=== PATIENT | male | born 1995 | race Caucasian/White ===

== ENCOUNTER 2024-10-21 10:19 | Emergency (ER) | payer OTHER, SELFPAY ==
[2024-10-21 10:21] VITALS: BP 155/86; PULSE 83; RESP 13; TEMP 36.7; O2SAT 99; BMI 24.3
[2024-10-21 10:27] VITALS: BP 155/86; PULSE 89; O2SAT 99
[2024-10-21 10:30] VITALS: BP 157/92; PULSE 86; TEMP 36.7; O2SAT 98
--- NOTE | 2024-10-21 10:31 | DI.RAD.S_ITS ---
PROCEDURE: XR CHEST 1V INDICATIONS: Chest Pain TECHNIQUE: One view of the chest was acquired. COMPARISON: None. FINDINGS: Surgical changes and devices: None. Lungs and pleura: Lungs are clear. No pleural effusions or pneumothorax. Mediastinum: Mediastinal contours appear normal. Heart size is normal. Bones and chest wall: No suspicious bony lesions. Overlying soft tissues appear unremarkable. IMPRESSION: No acute cardiopulmonary abnormality is seen. Dictated by: Sam Baker M.D. on 10/21/2024 at 10:52 Approved by: Sam Baker M.D. on 10/21/2024 at 10:52
--- NOTE | 2024-10-21 10:31 | EKG_ITS ---
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
[2024-10-21] MEDS: ASPIRIN 81 MG CHEW TAB 324 MG PO (10:35)
[2024-10-21 10:44] LABS: Add Manual Diff / Slide Review NO; Basophils Absolute Auto 100 /uL (0-100); Basophils Percent Auto 0.8 % (0-2); Eosinophils Absolute Auto 200 /uL (0-450); Eosinophils Percent Auto 2.8 % (2-4); Hematocrit 46.4 % (41-53); Lymphocytes Absolute Auto 2300 /uL (1100-4500); Lymphocytes Percent Auto 27.7 % (25-40); Mean Corpuscular HGB Conc 34.6 % (30-36); Mean Corpuscular Hemoglobin 30.1 PG (26-34); Mean Corpuscular Volume 87.2 fL (80-100); Monocytes Absolute Auto 900 /uL (0-900); Monocytes Percent Auto 10.3 % (3-14); Neutrophils Absolute Auto 4800 /uL (1500-7000); Neutrophils Percent Auto 58.4 % (50-75); Platelet Count 227 X10^3/uL (150-400); Red Blood Cell Count 5.32 X10^6/uL (4.5-5.9); Red Cell Distribution Width 13.6 % (11.6-14.8); White Blood Cell Count 8.2 X10^3/uL (4.5-11.0)
[2024-10-21 10:52] LABS: INR 0.9 (0.9-1.3); Prothrombin Time 10.6 SECONDS (9.4-12.5)
[2024-10-21 10:54] LABS: PTT Partial Thromboplastin Tim 34 SECONDS (25.1-36.5)
[2024-10-21 10:56] LABS: Alanine Aminotransferase 24 IU/L (<50); Albumin 4.4 g/dL (3.5-5.0); Albumin Globulin Ratio 1.6 (1.0-2.8); Alkaline Phosphatase 47 U/L (38-126); Aspartate Aminotransferase 26 IU/L (17-59); BUN Creatinine Ratio 19.7 (6-22); Bilirubin Total 0.5 mg/dL (0.2-1.3); Blood Urea Nitrogen 14 mg/dL (9-20); Calcium 9.6 mg/dL (8.4-10.2); Carbon Dioxide 26 mmol/L (22-32); Chloride 106 mmol/L (98-107); Creatine Kinase 48 U/L (55-170); Estimated Glomerular Filt Rate > 60 mL/min (>60); Globulin 2.8 g/dL (1.7-4.1); Glucose 82 mg/dL (70-99); HEMOLYSIS < 15 (0-50); Lactate (Lactic Acid) 1.4 mmol/L (0.7-2.1); Lipase 127 U/L (23-300); Magnesium 1.8 mg/dL (1.6-2.3); Potassium 4.2 mmol/L (3.4-5.1); Sodium 139 mmol/L (137-145); Total Protein 7.2 g/dL (6.3-8.2)
[2024-10-21 11:00] VITALS: BP 146/74; PULSE 74; RESP 17; O2SAT 98
[2024-10-21 11:07] LABS: NT-proBNP (BNP-Adult 18+) 79 pg/mL (<125); Troponin I < 0.012 ng/mL (0.01-0.034)
--- NOTE | 2024-10-21 11:20 | ED_ITS ---
HPI - Chest Pain General Chief Complaint: Chest Pain Stated Complaint: Chest pain 3 days Time Seen by Provider: 10/21/24 11:12 Source: patient Mode of arrival: Ambulatory Limitations: no limitations History of Present Illness HPI narrative: Patient here for reproducible left anterior chest pain for the past 3 days. No known injury. 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 Pain is reproducible with deep breath and movement and coughing. No recent illness cough cold congestion fever chills. No primary family history of coronary disease. No history of hypertension hyperlipidemia. Patient does smoke. No exertional chest pain shortness of breath or diaphoresis or nausea. No prior history of pulmonary embolism or aortic dissection Related Data Allergies Allergy/AdvReac Type Severity Reaction Status Date / Time No Known Drug Allergies Allergy Verified 10/21/24 10:32 Review of Systems Review of Systems Narrative: GENERAL: Negative chills, fatigue, malaise, fever, sweats. HEENT: Negative sinus pain, ear pain, sore throat RESPIRATORY: Negative dyspnea, cough CARDIOVASCULAR: Positive chest pain, negative palpitations GASTROINTESTINAL: Negative vomiting, nausea, abdominal pain : Negative dysuria, frequency, hematuria MUSCULOSKELETAL: Negative muscle or bony pain SKIN: Negative rash, skin lesions NEUROLOGIC: Negative weakness, numbness ROS Unobtainable: All systems reviewed & are unremarkable except as noted in HPI and below Patient History Social History Smoking Status: Current every day smoker Smoking Status: Current every day smoker Exam Narrative Exam Narrative: GENERAL: in no distress, not toxic not dyspneic HEAD: Normocephalic. EYES: Pupils equal round ENT: Mucous membranes moist. NECK: Trachea midline. CARDIOVASCULAR: Regular rate and rhythm RESPIRATORY: Clear to auscultation. Breath sounds equal bilaterally. No wheezes, rales, or rhonchi. Chest is nontender at rib space around 3, 4, 5. No crepitus. Worse with deep breath and coughing as well. GASTROINTESTINAL: Abdomen soft, non-tender EXTREMITIES: No gross deformities. BACK: No flank tenderness. NEURO: AOx4. Clear speech SKIN: Warm and dry PSYCH: Not anxious, is cooperative Initial Vital Signs Initial Vital Signs: Vital Signs Temperature 98.1 F 10/21/24 10:21 Pulse Rate 83 10/21/24 10:21 Respiratory Rate 13 10/21/24 10:21 Blood Pressure 155/86 H 10/21/24 10:21 Pulse Oximetry 99 10/21/24 10:21 Oxygen Delivery Method Room Air 10/21/24 10:21 Scores HEART Score Heart Score history: Slightly Suspicious Heart Score EKG: Normal Heart Score Age: < 45 years old Heart Score risk factors: 1-2 risk factors Heart Score troponin: < or = to normal limit Heart Score Total: 1 Course Orders Ordered: Discontinued Medications Aspirin (Aspirin 81 Mg Chew Tab) 324 mg PO NOW ONE Stop: 10/21/24 10:30 Last Admin: 10/21/24 10:35 Dose: 324 mg Documented By: YI Ketorolac Tromethamine (Ketorolac 30 Mg/Ml Vial) 15 mg IV NOW ONE Stop: 10/21/24 11:16 Last Admin: 10/21/24 11:56 Dose: 15 mg Documented By: TYESHA Vital Signs Vital signs: Vital Signs - 8 hr 10/21/24 10:21 10/21/24 10:27 10/21/24 10:27 Temperature 98.1 F Pulse Rate 83 89 Respiratory Rate 13 Blood Pressure 155/86 H 155/86 H Pulse Oximetry 99 99 Oxygen Delivery Method Room Air 10/21/24 10:30 10/21/24 10:30 Temperature 98.1 F Pulse Rate 86 Respiratory Rate Blood Pressure 157/92 H Pulse Oximetry 98 Oxygen Delivery Method Room Air MDM - Chest Pain Lab Data 10/21/24 10:30 10/21/24 10:30 Labs: Lab Results 10/21/24 Range/Units 10:30 WBC 8.2 (4.5-11.0) X10^3/uL RBC 5.32 (4.5-5.9) X10^6/uL Hgb 16.0 (13.5-17.5) g/dL Hct 46.4 (41-53) % MCV 87.2 (80-100) fL MCH 30.1 (26-34) PG MCHC 34.6 (30-36) % RDW 13.6 (11.6-14.8) % Plt Count 227 (150-400) X10^3/uL Neut % (Auto) 58.4 (50-75) % Lymph % (Auto) 27.7 (25-40) % [place] % (Auto) 10.3 (3-14) % Eos % (Auto) 2.8 (2-4) % Baso % (Auto) 0.8 (0-2) % Neut # (Auto) 4800 (7739-1902) /uL Lymph # (Auto) 2300 (2992-5788) /uL [place] # (Auto) 900 (0-900) /uL Eos # (Auto) 200 (0-450) /uL Baso # (Auto) 100 (0-100) /uL PT 10.6 (9.4-12.5) SECONDS INR 0.9 (0.9-1.3) APTT 34 (25.1-36.5) SECONDS D-Dimer 269 (<500) ng/ml Sodium 139 (137-145) mmol/L Potassium 4.2 (3.4-5.1) mmol/L Chloride 106 (98-107) mmol/L Carbon Dioxide 26 (22-32) mmol/L BUN 14 (9-20) mg/dL Creatinine 0.71 (0.66-1.25) mg/dL Estimated GFR > 60 (>60) mL/min BUN/Creatinine Ratio 19.7 (6-22) Glucose 82 (70-99) mg/dL Lactate 1.4 (0.7-2.1) mmol/L Calcium 9.6 (8.4-10.2) mg/dL Magnesium 1.8 (1.6-2.3) mg/dL Total Bilirubin 0.5 (0.2-1.3) mg/dL AST 26 (17-59) IU/L ALT 24 (<50) IU/L Alkaline Phosphatase 47 (38-126) U/L Total Creatine Kinase 48 L (55-170) U/L Troponin I < 0.012 (0.01-0.034) ng/mL NT-Pro-B Natriuret Pep 79 (<125) pg/mL Total Protein 7.2 (6.3-8.2) g/dL Albumin 4.4 (3.5-5.0) g/dL Globulin 2.8 (1.7-4.1) g/dL Albumin/Globulin Ratio 1.6 (1.0-2.8) Lipase 127 (23-300) U/L Imaging Data Chest x-ray: Radiologist's Impression: [address] [address] XRay Report Signed Patient: Ozzy Hernandez MR#: [id number] : 1995 Acct:[id number] Age/Sex: 29 / M Date of Service: 10/21/24 Loc: ED Accession Number: [id number] Procedure: XR chest 1V Ordering Provider: Phil Jamison MD PROCEDURE: XR CHEST 1V INDICATIONS: Chest Pain TECHNIQUE: One view of the chest was acquired. COMPARISON: None. FINDINGS: Surgical changes and devices: None. Lungs and pleura: Lungs are clear. No pleural effusions or pneumothorax. Mediastinum: Mediastinal contours appear normal. Heart size is normal. Bones and chest wall: No suspicious bony lesions. Overlying soft tissues appear unremarkable. IMPRESSION: No acute cardiopulmonary abnormality is seen. Dictated by: Sam Baker M.D. on 10/21/2024 at 10:52 Approved by: Sam Baker M.D. on 10/21/2024 at 10:52 [facility] Narrative Medical decision making narrative: Patient here for reproducible left anterior chest pain for the past 3 days. No known injury. 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 Pain is reproducible with deep breath and movement and coughing. No recent illness cough cold congestion fever chills. No primary family history of coronary disease. No history of hypertension hyperlipidemia. Patient does smoke. No exertional chest pain shortness of breath or diaphoresis or nausea. No prior history of pulmonary embolism or aortic dissection After history and exam, exam is reassuring. It is reproducible left-sided chest pain, CBC CMP troponin EKG chest x-ray ordered. [facility] Medical records reviewed: No recent visit for this complaint Differential considered: Includes but not limited to STEMI non-STEMI pulmonary embolism aortic dissection costochondritis pleurisy pneumonia pneumothorax myocarditis pericarditis endocarditis Lab Test results independently reviewed as above. Pertinent findings: WBC 8.2 sodium 139 potassium 4.2 BUN 14 creatinine 0.71 lactate 1.4 troponin less than 0.012 BNP 79 lipase 127 Independently reviewed EKG normal sinus rhythm rate [address] elevation or depression Imaging studies independently reviewed: Chest x-ray no acute finding Re-evaluations: 11:41 a.m.. Reviewed results with patient. Likely costochondritis. He has low heart risk factors. Pain is reproducible. He has been under lot of stress with his new job he admits. This may aggravate his chest pain as well. Return precautions reviewed. Nontoxic at discharge. He desires discharge home. Discussion: Appropriate for discharge home exam is reassuring. Once that it troponin appropriate as this has been going on for 3 days and is constant and is reproducible. Clinically likely costochondritis. Patient has low heart score. Low risk factors. Return precautions reviewed. He desires discharge home. Diagnosis: Costochondritis Discharge Plan Departure Patient Disposition: Home Clinical Impression: Costalchondritis Instructions: DI for Costochondritis Activity Restrictions/Additional Instructions: Your exam and laboratory studies imaging studies and EKG are reassuring. It is likely costochondritis/chest wall pain that you are experiencing. However, please do stop smoking. Return if worse if any questions or concerns. See family doctor in a week for re-evaluation. No new prescriptions are indicated at this time. You may continue ibuprofen or Tylenol for pain. Please call provided primary care provider phone number to obtain family , Stand Alone Forms: Patient Portal/API/Survey
[2024-10-21 11:24] LABS: D Dimer 269 ng/ml (<500)
[2024-10-21 11:30] VITALS: BP 152/90; PULSE 81; RESP 21; TEMP 36.6; O2SAT 100
[2024-10-21] MEDS: KETOROLAC 30 MG/ML VIAL 15 MG IV (11:56)
== END 2024-10-21 12:00 | disposition home or self-care (01) ==
PROVIDERS: Emergency Provider Emergency Medicine
DX: M94.0 Chondrocostal junction syndrome [Tietze] (principal)
CPT/HCPCS: 36415; 71045; 80053; 82550; 83605; 83690; 83735; 83880; 84484; 85025; 85379; 85610; 85730; 93005; 96374; 99284; J1885